=== PATIENT | female | born 1990 | race Caucasian/White ===

== ENCOUNTER 2016-11-06 08:24 | Emergency (ER) ==
[2016-11-06 08:33] VITALS: BP 119/78; TEMP 98.3; BMI 34.3
--- NOTE | 2016-11-06 08:59 | ED.PDOC ---
General ED Provider: Dr. ANKUSH HUGHES Chief Complaint: Abdominal Pain Stated Complaint: RUQ abdominal pain constantly since March 2016. Much worse since this AM. No recent trauma. BC implant so pregnany unlikely. GB removed several years ago. No other surgeries. Time Seen by Physician: 08:54 Mode of Arrival: Walk-In Information Source: Patient Primary Care Provider: HELLEN SIERRA Nursing and Triage Documentation Reviewed and Agree: Yes GI Complaint Exam - Abdominal Pain Complaint/Exam Onset: Sudden Duration: 7 months, worse since awakening this AM Symptoms Are: Still present Timing: Constant Initial Severity: Mild Current Severity: Moderate Location of Pain: RUQ Radiates To: Reports: Back Character: Reports: Aching, Throbbing Aggravating: Reports: Movement (palpation) Alleviating: Reports: None Associated Signs and Symptoms: Reports: Diaphoresis, Back pain Related History: Reports: Similar episode (since march 2016) : 1 Para: 1 Hx Total # of Abortions (Spontaneous & Elective): 0 AAA Risk Factors: Reports: None Cardiac Risk Factors: Reports: None Ectopic Risk Factors: Reports: None Ovarian Torsion Risk Factors: Reports: Reproductive age Surgical Obstruction Risk Factors: Reports: Prior abdominal surgery Related Surgical History: Reports: Cholecystectomy Patient Rh Status: Unknown Abdominal Findings: Present: None (RUQ tenderness, right CVA tenderness) Differential Diagnoses: Constipation, Gastroenteritis, Ureteral Stone Review of Systems - Review Of Systems Constitutional: Reports: Sweats Eyes: Reports: No symptoms Ears, Nose, Mouth, Throat: Reports: No symptoms Respiratory: Reports: No symptoms Cardiac: Reports: No symptoms GI: Reports: Abdominal pain : Reports: Pain Musculoskeletal: Reports: Back pain Skin: Reports: No symptoms Neurological: Reports: No symptoms All Other Systems: Reviewed and Negative Past Medical History - Past Medical History Previously Healthy: Yes Endocrine: Reports: None Cardiovascular: Reports: None Respiratory: Reports: Other (Pulmonary nodules noted during work up for abd pain , followed with serial CT scans, waxing and waning individually, exact dx unknown, scheduled for repeat CT scan today. No respiratory symptoms.) Hematological: Reports: None Gastrointestinal: Reports: None Genitourinary: Reports: None Neuro/Psych: Reports: None Musculoskeletal: Reports: None Cancer: Reports: None Last Menstrual Period: HAS IMPLANT - Surgical History General Surgical History: Reports: Cholecystectomy - Family History Family History: Reports: Unknown - Social History Smoking Status: Never smoker Hx Substance Use: No Alcohol Screening: None Lives: With family - Immunizations Tetanus Shot up to Date: No Influenza Vaccine within 12 Months: No Pneumococcal Vaccine up to Date: No Physical Exam - Physical Exam Appearance: Well-appearing, Well-nourished Ill-appearing: None Pain Distress: Moderate Respiratory: Airway patent, Breath sounds clear, Breath sounds equal, Respirations nonlabored Cardiovascular: RRR, Pulses normal, No rub, No murmur GI/: Soft, No masses, Bowel sounds normal, No Organomegaly, Tender (RUQ tenderness, bilateral CVA tenderness L>R) Musculoskeletal: Normal strength, ROM intact, No edema, No calf tenderness Skin: Warm, Dry, Normal color Neurological: Sensation intact, Motor intact, Reflexes intact, Cranial nerves intact, Alert, Oriented Psychiatric: Affect appropriate, Mood appropriate Critical Care Note - Critical Care Note Total Time (mins): 0 Course - Course Hematology/Chemistry: 11/06/16 09:30 11/06/16 09:20 Orders, Labs, Meds: Lab Review 11/06/16 11/06/16 11/06/16 08:50 08:50 09:20 WBC RBC Hgb Hct MCV MCH MCHC RDW Coeff of Ruchi Plt Count Immature Gran % (Auto) Neut % (Auto) Lymph % (Auto) [place] % (Auto) Eos % (Auto) Baso % (Auto) Immature Gran # (Auto) Neut # Lymph # [place] # Eos # Baso # Sodium 139 Potassium 4.1 Chloride 109 H Carbon Dioxide 18 L Anion Gap 16.1 BUN 7 Creatinine 0.68 Estimated GFR (MDRD) 105.00 BUN/Creatinine Ratio 10.29 Glucose 105 Lactic Acid Calcium 9.6 Total Bilirubin 0.62 AST 16 ALT 10 L Alkaline Phosphatase 78 Total Protein 7.6 Albumin 3.7 Globulin 3.9 Albumin/Globulin Ratio 0.95 Amylase 53 Lipase 11 Urine Color Yellow Urine Clarity Clear Urine pH 7.0 Ur Specific [place] 1.010 Urine Protein Negative Urine Glucose (UA) Negative Urine Ketones Negative Urine Blood Negative Urine Nitrite Negative Urine Bilirubin Negative Urine Urobilinogen 0.2 Ur Leukocyte Esterase Trace Ur Squamous Epith Cells Not present Urine Test Negative 11/06/16 11/06/16 09:20 09:30 WBC 9.91 RBC 4.40 Hgb 13.6 Hct 38.7 MCV 88.0 MCH 30.9 MCHC 35.1 RDW Coeff of Ruchi 12.8 Plt Count 257 Immature Gran % (Auto) 0.3 Neut % (Auto) 71.4 Lymph % (Auto) 21.6 [place] % (Auto) 5.8 Eos % (Auto) 0.6 Baso % (Auto) 0.3 Immature Gran # (Auto) 0.0 Neut # 7.1 H Lymph # 2.1 [place]assen # 0.6 Eos # 0.1 Baso # 0.0 Sodium Potassium Chloride Carbon Dioxide Anion Gap BUN Creatinine Estimated GFR (MDRD) BUN/Creatinine Ratio Glucose Lactic Acid 5.2 Calcium Total Bilirubin AST ALT Alkaline Phosphatase Total Protein Albumin Globulin Albumin/Globulin Ratio Amylase Lipase Urine Color Urine Clarity Urine pH Ur Specific [place] Urine Protein Urine Glucose (UA) Urine Ketones Urine Blood Urine Nitrite Urine Bilirubin Urine Urobilinogen Ur Leukocyte Esterase Ur Squamous Epith Cells Urine Test Orders Category Date Time Status NPO REMINDER: IMAGING ONCE CARE 11/06/16 10:08 Completed AMYLASE Stat LAB 11/06/16 09:20 Completed CBC W/ AUTO DIFF Stat LAB 11/06/16 09:30 Completed COMPREHENSIVE METABOLIC PANEL Stat LAB 11/06/16 09:20 Completed LACTIC ACID Stat LAB 11/06/16 09:20 Completed LIPASE Stat LAB 11/06/16 09:20 Completed TEST URINE [URINE ] Stat LAB 11/06/16 08:50 Completed URINALYSIS C & S IF INDICATED Stat LAB 11/06/16 08:[address] ABDOMEN/PELVIS W CONTRAST Stat RADS 11/06/16 10:[address] CHEST W/CONTRAST Stat RADS 11/06/16 10:08 Completed Vital Signs: Temp Pulse Resp BP Pulse Ox 11/06/16 08:27 98.3 F 81 16 119/78 98 Departure - Departure Time of Disposition: 12:02 Disposition: HOME SELF-CARE Discharge Problem: Abdominal pain Instructions: Abdominal Pain (ED) Condition: Good Pt referred to PMD for follow-up: Yes (Follow up with PCP GÓMEZ ) Allergies/Adverse Reactions: Allergies Penicillins Adverse Reaction (Verified 11/06/16 08:26) Home Medications: Ambulatory Orders Acetaminophen with Codeine [Tylenol #3 Tab] 1 tab PO Q4H PRN #20 tablet Ranitidine HCl [Zantac 75] 75 mg PO DAILY 11/06/16 Disposition Discussed With: Patient, Family
[2016-11-06 09:39] LABS: BASOPHILS % (AUTO) 0.3 % (0.0-3.0); EOSINOPHILS # (AUTO) 0.1 K/ul (0.0-0.7); EOSINOPHILS % (AUTO) 0.6 % (0.0-7.0); HEMATOCRIT 38.7 % (37.0-47.0); HEMOGLOBIN 13.6 g/dl (12.0-16.0); IMMATURE GRANULOCYTE % (AUTO) 0.3 % (0.0-5.0); LYMPHOCYTES # (AUTO) 2.1 K/uL (0.60-3.4); LYMPHOCYTES % (AUTO) 21.6 (10.0-50.0); MEAN CORPUSCULAR HEMOGLOBIN 30.9 pg (27.0-31.0); MEAN CORPUSCULAR HGB CONC 35.1 (31.8-35.4); MONOCYTES # (AUTO) 0.6 K/uL (0.4-2.0); MONOCYTES % (AUTO) 5.8 (0-10); NEUTROPHILS # (AUTO) 7.1 K/ul (2.0-6.9); NEUTROPHILS % (AUTO) 71.4; PLATELET COUNT 257 10^3/uL (140-440); WHITE BLOOD COUNT 9.91 K/ul (4.6-10.2)
[2016-11-06 09:51] LABS: ADD URINE MICROSCOPIC YES; BILIRUBIN,URINE Negative (NEGATIVE); KETONES,URINE Negative (NEGATIVE); LEUKOCYTE ESTERASE ,URINE Trace (NEGATIVE); NITRITE,URINE Negative (NEGATIVE); PROTEIN,URINE Negative (NEGATIVE); URINE, BLOOD Negative (NEGATIVE)
[2016-11-06 09:52] LABS: URINE PREGNANCY INTERNAL QC INTERNAL QC VALID
[2016-11-06 09:59] LABS: ALBUMIN 3.7 g/dL (3.4-5.0); ALBUMIN/GLOBULIN RATIO 0.95; ANION GAP 16.1; BILIRUBIN,TOTAL 0.62 mg/dL (0.00-1.20); BUN/CREATININE RATIO 10.29; CALCIUM 9.6 mg/dL (8.2-10.2); CREATININE 0.68 mg/dL (0.60-1.30); POTASSIUM 4.1 mmol/L (3.5-5.10); TOTAL PROTEIN 7.6 g/dL (6.4-8.2)
--- NOTE | 2016-11-06 11:22 | CT ---
EXAM: CT abdomen pelvis with contrast HISTORY: Right lower quadrant pain 7 months, worse since this a.m. COMPARISON: None TECHNIQUE: CT abdomen pelvis performed with intravenous contrast. Coronal and sagittal reformatted images obtained. FINDINGS: There are several bilateral pulmonary nodules appear decreased from CT chest 2010, consist ent with benign etiology. No free air. No acute abnormalities of the bones. The heart normal in si ze. Liver appears normal. Patient status post cholecystectomy. Pancreas appears normal. Spleen ap pears normal. Adrenals appear normal. Kidneys appear normal. Bladder unremarkable. Aorta normal i n caliber. Uterus unremarkable. Left ovarian cyst or follicle measuring 1.8 cm. No ascites or lymp hadenopathy. Small fat-containing umbilical hernia. Stomach appears normal. No dilated loops small bowel. Appendix appears normal. Colon unremarkable. No inflammatory stranding identified in the a bdomen pelvis. IMPRESSION: No acute inflammatory process identified in the abdomen or pelvis.
--- NOTE | 2016-11-06 11:24 | CT ---
Exam: CT of the chest with intravenous contrast. Comparison: 12/29/2010. 12/22/2013 Reason for exam: Follow-up pulmonary nodules. FINDINGS: There are multiple sub centimeter nodules seen throughout the lung parenchyma. When maritza red to the previous imaging, the nodular densities have decreased in size and / or calcified. No new nodularity is seen. No pneumothorax, pleural effusion, or focal consolidation. The heart is not en larged. The aorta is normal in course and caliber. The gallbladder has been removed. The partially imaged upper abdomen is unremarkable. No suspicious appearing osteoblastic or osteolytic lesion. Impression: 1. The previously described pulmonary nodules have generally decreased in size with many of the nodul ar densities calcifying in the interim between CT scans. 2. No new nodularity is seen. 3. No acute imaging findings within the thorax
== END 2016-11-06 12:38 | disposition home or self-care (01) ==
LOC: ED 08:24
DX: R10.11 Right upper quadrant pain (principal); R91.8 Other nonspecific abnormal finding of lung field
CPT/HCPCS: 36415; 80053; 81001; 81025; 82150; 83605; 83690; 85025; 99283

== ENCOUNTER 2017-11-05 14:49 | Outpatient (CLI) ==
--- NOTE | 2017-11-05 15:27 | DI ---
EXAM: Two views of the chest. History: Chest pain. Comparison: Chest radiograph 12/06/2013, chest CT 11/06/2016 Findings: Heart size is within normal limits. No focal consolidation. No appreciable pleural fluid and no pneumothorax. No acute osseous abnormalities. Calcified granulomas again seen within the th orax. No acute osseous abnormalities. Impression: No acute cardiopulmonary process. Old granulomatous disease.
== END 2017-11-05 14:50 | disposition home or self-care (01) ==
LOC: LAB 14:49
PROVIDERS: ATTEND Nurse Practitioner Family
DX: I49.9 Cardiac arrhythmia, unspecified (principal); R07.81 Pleurodynia; R10.9 Unspecified abdominal pain
CPT/HCPCS: 36415; 80053; 80061; 82150; 83690; 84443; 85025; 86677; 93005; 93010

== ENCOUNTER 2017-11-12 10:51 | Outpatient (CLI) ==
--- NOTE | 2017-11-12 14:03 | CT ---
EXAM: CT abdomen pelvis without contrast HISTORY: Unspecified abdominal pain COMPARISON: 11/06/2016 TECHNIQUE: CT abdomen pelvis performed without intravenous contrast. Coronal and sagittal reformatt ed images obtained. FINDINGS: Granulomatous calcification lung bases. No free air. No acute abnormalities of the bones . Heart normal in size. Evaluation organ parenchyma limited without contrast. Liver appears normal . Patient status post cholecystectomy. Pancreas unremarkable. Spleen unremarkable. Adrenals unrem arkable. Kidneys unremarkable without hydronephrosis or nephrolithiasis. Aorta normal in caliber. No lymphadenopathy or ascites. Bladder unremarkable. Uterus unremarkable. Small fat-containing per iumbilical hernia. Stomach unremarkable. No dilated loops small bowel. Appendix appears normal. C olon unremarkable. No inflammatory stranding identified in the abdomen pelvis. IMPRESSION: No acute abnormality identified in the abdomen pelvis.
== END 2017-11-12 10:52 | disposition home or self-care (01) ==
LOC: RAD 10:51
PROVIDERS: ATTEND Nurse Practitioner Family
DX: R10.9 Unspecified abdominal pain (principal)

== ENCOUNTER 2017-11-19 06:36 | Outpatient (CLI) ==
--- NOTE | 2017-11-19 09:31 | ECHO2D ---
Date of Exam: 11/19/17 Ordering Physician: [facility]--CANDE KRAMER Room #: OP Reason for Echo: TACHYCARDIA M-Mode Normal Adult Results LV Dimensions Normal Adult Results AoV Opening excursions >1.6 >1.6 LVEDD-base- 3.5-5.8 5.2 Ao root dimensions 2.0-3.7 3.0 LVESD-base- 3.1-4.6 L. Atrium dimensions 1.9-3.8 3.5 Post. Wall thickness 0.8-1.1 1.0 IV septum (thickness) 0.7-1.2 1.0 Post. Wall excursion 0.72-1.3 NORMAL Septal motion NORMAL Systolic motion R. Ventricular cavity 1.5-2.0 NORMAL LVEF 60% 61% Paradoxical septal wall motion NORMAL 2-D : 2-D M Mode Echocardiogram was performed using apical four chamber and left parasternal long and short axis views. Mitral, tricuspid and aortic valves appear to be normal. Contractility of the left ventricle seems to be normal, so is the cavity size. Left atrial cavity size and aortic root appear to be normal. There is no pericardial effusion. There is no thrombus noted in the left ventricular or left aortic cavity. No mitral valve prolapse noted. M-MODE: MV: NORMAL AV: NORMAL TV: NORMAL PV: CHAMBER SIZE: NORMAL WALL MOTION: NORMAL PERICARDIUM: NORMAL INTERPRETATION: 1. NORMAL 2 "D" "M" MODE [facility]
== END 2017-11-19 06:37 | disposition home or self-care (01) ==
LOC: CAR 06:36
PROVIDERS: ATTEND Nurse Practitioner Family
DX: I49.9 Cardiac arrhythmia, unspecified (principal); R60.0 Localized edema

== ENCOUNTER 2017-11-22 06:36 | Outpatient (CLI) ==
--- NOTE | 2017-11-23 12:37 | STRESSECHO ---
Date of Test: 11/22/17 Ordering Physician: CANDE KRAMER APRN Occupation: UNEMPLOYED Reason for Exam: CHEST PAIN, TACHYCARDIA, PALPITATIONS, ASTHMATIC-HISTORY Smoking History: NONE Height: 64" Weight: 198 LBS Current Medications: ZANTAC, ALBUTEROL AND NEBULIZERS, CONTROL Resting EKG: SINUS RHYTHM/ NO ACUTE CHANGES Target Heart Rate: 164/194 S-T SEGMENT STAGE MPH/GRADE HEART RATE BPM BLOOD PRESSURE MMHG RHYTHM +/- ELEVATION DEPRESSION SYMPTOMS AT REST 96 BPM 118/62 MMHG SR X NONE 1 1.7/10% 164 BPM 142/62 MMHG SR X NONE 2 2.5/12% 170 BPM 138/70 MMHG SR X NONE 3 3.4/14% 4 4.2/16% 5 5.0/18% Immediately After 171 BPM SR X SHORT OF BREATH Minutes Post Exercise 5:00 106 BPM 138/56 MMHG SR X NONE Minutes Post Exercise DURATION OF EXERCISE: 5:00 MAXIMUM HEART RATE REACHED: 171 BPM REASON FOR TERMINATION: SHORT OF BREATH 99% OXYGEN SATURATION WITH EXERCISE ON ROOM AIR INTERPRETATION: 1. NO EVIDENCE OF ISCHEMIA BY ST-T WAVE 2. NO CHEST PAIN OR DISCOMFORT 3. NO ARRHYTHMIAS 4. BLOOD PRESSURE RESPONSE: NORMAL NORMAL LEFT VENTRICULAR CONTRACTILITY--RESTING AND POST EXERCISE MTDD
--- NOTE | 2017-11-23 12:40 | ECHOSTRESS ---
Date of Exam: 11/22/17 Ordering Physician: CANDE KRAMER APRN Reason for Echo: CHEST PAIN, TACHYCARDIA, STRESS TEST--NO ISCHEMIA M-Mode Normal Adult Results LV Dimensions Normal Adult Results AoV Opening excursions >1.6 LVEDD-base- 3.5-5.8 Ao root dimensions 2.0-3.7 LVESD-base- 3.1-4.6 L. Atrium dimensions 1.9-3.8 Post. Wall thickness 0.8-1.1 IV septum (thickness) 0.7-1.2 Post. Wall excursion 0.72-1.3 Septal motion Systolic motion R. Ventricular cavity 1.5-2.0 LVEF 60% Paradoxical septal wall motion 2-D: NORMAL LEFT VENTRICULAR CONTRACTILITY--RESTING AND POST EXERCISE M-MODE: MV: AV: TV: PV: CHAMBER SIZE: WALL MOTION: NORMAL LEFT VENTRICULAR CONTRACTILITY--RESTING AND POST EXERCISE PERICARDIUM: INTERPRETATION: 1. NORMAL LEFT VENTRICULAR CONTRACTILITY--RESTING AND POST EXERCISE MTDD
== END 2017-11-22 06:37 | disposition home or self-care (01) ==
LOC: CAR 06:36
PROVIDERS: ATTEND Nurse Practitioner Family
DX: I49.9 Cardiac arrhythmia, unspecified (principal); R00.0 Tachycardia, unspecified

== ENCOUNTER 2017-12-06 15:15 | Outpatient (CLI) | END 2017-12-06 15:16 | disposition home or self-care (01) | LOC: LAB 15:15 | PROVIDERS: ATTEND Nurse Practitioner Family | DX: M25.50 Pain in unspecified joint (principal); M25.549 Pain in joints of unspecified hand | CPT/HCPCS: 36415; 85651; 86038; 86140; 86430 ==